=== PATIENT | male | born 1985 | race Caucasian/White ===

== ENCOUNTER 2019-04-04 02:35 | Emergency (ER) | payer OTHER ==
[~2019-04-04] VITALS: Ht 177.8 cm; Wt 186.4 kg
[2019-04-04 02:41] VITALS: TEMP 98.4
[2019-04-04 03:22] VITALS: BP 164/96; PULSE 80
== END 2019-04-04 03:27 | disposition home or self-care (01) ==
LOC: COL.ER 02:35
DX: S61.412A Laceration without foreign body of left hand, initial encounter (principal); F17.210 Nicotine dependence, cigarettes, uncomplicated; Y92.59 Other trade areas as the place of occurrence of the external cause

== ENCOUNTER 2019-04-10 17:11 | Emergency (ER) | payer OTHER | END 2019-04-10 17:24 | disposition home or self-care (01) | LOC: COL.ER 17:11 | DX: S61.412D Laceration without foreign body of left hand, subsequent encounter (principal); X58.XXXD Exposure to other specified factors, subsequent encounter ==

== ENCOUNTER 2021-02-24 07:08 | Inpatient (IN) | payer BC ==
[~2021-02-24] VITALS: Ht 177.8 cm; Wt 200.0 kg
[2021-02-24] VITALS (7 sets, daily range): BP systolic 166–200; BP diastolic 87–98; PULSE 84–111; TEMP 97.7–98.7
[2021-02-24] MEDS ORDERED: PROZAC40 MG PO (07:12)
[2021-02-24 07:38] LABS: BASO % 0.5 % (0.0-2.0); GRAN % 79.1 % (42.2-75.2); HEMOGLOBIN 15.8 g/dl (13.5-18.0); LYMPH # 0.7 (1.2-3.4); MEAN CELL VOLUME 101 fl (80.0-100.0); MEAN CORPUSCULAR HEMOGLOBIN 34 pg (27.0-31.0); MEAN CORPUSCULAR HGB CONC 34 g/dl (33.0-37.0); MEAN PLATELET VOLUME 9.5 fl (7.4-10.4); MONO # 0.5 (0.1-0.6); MONO % 8.5 % (1.7-9.3); PLATELET COUNT 122 K/mm3 (130-400); RED BLOOD COUNT 4.65 M/mm3 (4.20-5.60); REDCELL DISTRIBUTION WIDTH-CV 14.7 % (11.5-14.5)
[2021-02-24 07:51] LABS: ALBUMIN 4.8 gm/dL (3.5-5.0); ALKALINE PHOSPHATASE 78 U/L (50-136); ANION GAP 20 mmol/L (7-16); AST,SGOT 82 U/L (15-37); BILIRUBIN,TOTAL 1.4 mg/dL (0.0-1.0); BLOOD UREA NITROGEN 5 mg/dL (9-20); CALCIUM 9.7 mg/dL (8.4-10.2); CARBON DIOXIDE 22 mmol/L (22-30); CHLORIDE 94 mmol/L (98-107); CREATININE, serum 0.79 (0.66-1.25); GLUCOSE 180 mg/dL (74-106); LIPASE 219 U/L (23-300); POTASSIUM 3.9 mmol/L (3.4-5.0); SODIUM 135 mmol/L (137-145); TOTAL PROTEIN 8.8 gm/dL (6.4-8.2)
[2021-02-24 07:52] LABS: ALCOHOL(ethanol),MEDICAL < 10 mg/dL
[2021-02-24 07:57] LABS: ALANINE AMINOTRANSFERASE 76 U/L (4-49)
[2021-02-24 10:08] LABS: INR 1.1 (0.8-3.0); PROTHROMBIN TIME 12.4 SECONDS (9.7-12.8)
--- NOTE | 2021-02-24 18:58 | NUR ---
This RN received a call from telemetry that the patient was having SVTs with a rate of 150. I notified the charge nurse. Vitals were done, provider was called and a stat EKG was completed by RT.
--- NOTE | 2021-02-24 20:00 | NUR ---
Report received, assumed care for production shift supervisor. Assessment complete. A&Ox3-drowsy. Denies pain/nausea/shortness of breath. Noted ot have elevated blood pressure. Plan of care discussed for this shift to include HS meds/ativan PRN/calling for questions/concerns. Verblizes understanding/denies needs. Call light in reach. Will monitor.
--- NOTE | 2021-02-24 22:30 | NUR ---
Report from PCT that patient was hard to wake up and blood pressure was elevated. Patient sleeping-audible snore. Sternal rub done and patient woke up immediately stating he has always slept hard. Noted to also have elevated blood pressure with systolic in the 180s. Labetalol given per dr marion. Will monitor.
[2021-02-25] VITALS (11 sets, daily range): BP systolic 110–202; BP diastolic 59–108; PULSE 66–102; TEMP 07.9
[2021-02-25 06:19] LABS: BASO % 0.3 % (0.0-2.0); EOS # 0.1 (0.0-0.7); GRAN # 3.7 (1.4-6.5); HEMATOCRIT 42.5 % (42.0-52.0); LYMPH # 1.5 (1.2-3.4); LYMPH % 25.4 % (20.0-51.0); MEAN CELL VOLUME 103 fl (80.0-100.0); MEAN CORPUSCULAR HEMOGLOBIN 34 pg (27.0-31.0); MEAN CORPUSCULAR HGB CONC 33 g/dl (33.0-37.0); MEAN PLATELET VOLUME 10.3 fl (7.4-10.4); MONO # 0.6 (0.1-0.6); MONO % 9.8 % (1.7-9.3); PLATELET COUNT 87 K/mm3 (130-400); RED BLOOD COUNT 4.12 M/mm3 (4.20-5.60); REDCELL DISTRIBUTION WIDTH-CV 15.2 % (11.5-14.5)
[2021-02-25 06:27] LABS: CALCIUM 9.1 mg/dL (8.4-10.2); CREATININE, serum 0.75 (0.66-1.25); POTASSIUM 3.4 mmol/L (3.4-5.0)
--- NOTE | 2021-02-25 08:45 | NUR ---
Patient laying in bed, easily awakened with verbal command. VSS. IV CDI, fluids infusing. Denies pain and discomfort. ETOH protocols in place. No further needs expressed from the patient. Call light within reach. Bed alarm on
--- NOTE | 2021-02-25 10:43 | NUR ---
First visit from the radio mechanic apprentice. No needs right now.
--- NOTE | 2021-02-25 14:42 | NUR ---
Sw met with the pt who stated his preference to return home once medically stable. The pt is is willis wyn[place] and was interested in treatment centers, but due to cost he would like to stay seeing his psychotherapist at [facility]. The pt requested that Sw fax over his information to his therapist. The pt informed Sw that he would be texting his therapist as well. The Sw asked the pt if he was giving me permission to send his information and he stated "yes". The pt lives at home, and his next of kin is Rachell Pagan (ph# [phone]). The pt is independent on all ADLs and does not use any DME. The pt PCP is Jose Burnette and he gets his medications from [facility]. The pt does not have [facility] and is not interested in one at this time. The pt has never used HH services before. No other needs stated at this time. Sw to await further recommendations and follow up as needed. D/c: Home
--- NOTE | 2021-02-25 15:01 | NUR ---
Josh faxed over ER summary to at [facility] in [facility]. .
--- NOTE | 2021-02-25 17:45 | NUR ---
Patient stating that he is feeling a little better, just drowsy. Has stated concerns about detoxing and nursing staff providing advice and SS giving additional resources. VSS. IV CDI. ETOH protocol in place. Visual tremors in hands and stated increased anxiety from the patient. Tolerating food and getting rest. No further needs expressed from the patient. Call light within reach. Bed alarm on
--- NOTE | 2021-02-25 22:55 | NUR ---
ALERT AND OX4. OBVIOUS TREMORS, AND SWEATING. BP ELEVATED. DENIES CHEST PAIN OR SOA. FEELS ANXIOUS OFTEN. ATIVAN GIVEN PER CIWA PROTOCOL. POC DISCUSSED. NEEDS MET. CALL LIGHT WI REACH.
[2021-02-26] VITALS (10 sets, daily range): BP systolic 156–191; BP diastolic 86–108; PULSE 67–83; TEMP 97.7–98.9
--- NOTE | 2021-02-26 00:20 | NUR ---
BP OF SYSTOLIC OVER 200 TX W LABETOL. PT IS SLEEPING AT THIS TIME.
--- NOTE | 2021-02-26 04:50 | NUR ---
RESTED OVERNIGHT WITHOUT INCIDENT. SCORING 7-9 CIWA ATIVAN GIVEN NEEDED. NEEDS MET.
[2021-02-26 06:59] LABS: BASO % 0.2 % (0.0-2.0); EOS # 0.1 (0.0-0.7); EOS % 1.3 % (0-4.0); GRAN # 3.8 (1.4-6.5); GRAN % 61.8 % (42.2-75.2); HEMATOCRIT 43.8 % (42.0-52.0); LYMPH # 1.7 (1.2-3.4); MEAN CELL VOLUME 107 fl (80.0-100.0); MEAN CORPUSCULAR HEMOGLOBIN 34 pg (27.0-31.0); MEAN CORPUSCULAR HGB CONC 32 g/dl (33.0-37.0); MEAN PLATELET VOLUME 10.6 fl (7.4-10.4); MONO # 0.6 (0.1-0.6); MONO % 8.9 % (1.7-9.3); PLATELET COUNT 78 K/mm3 (130-400); RED BLOOD COUNT 4.09 M/mm3 (4.20-5.60); REDCELL DISTRIBUTION WIDTH-CV 15.2 % (11.5-14.5)
[2021-02-26 07:08] LABS: CALCIUM 9.1 mg/dL (8.4-10.2); CREATININE, serum 0.76 (0.66-1.25); POTASSIUM 3.2 mmol/L (3.4-5.0)
--- NOTE | 2021-02-26 07:19 | NUR ---
PATIENT ASLEEP IN BED AT THIS TIME.
--- NOTE | 2021-02-26 08:44 | NUR ---
Scheduled medication given. Shift assessment preformed. PRN Labetalol given for blood pressure of 191/97. Patient does not appear to anxious, mild tremor noted. Patient A&O. Patient scoring a 3. Patient denies any pain, N/V/D, or futher needs at this time.Will continue to monitor. Call light in reach. Fall precautions in place.
--- NOTE | 2021-02-26 12:37 | NUR ---
Patient's BP continues to be high. Dr. Yepez notified. Norvasc ordered. Patient experiencing mild hand tremors. Patient is A&O no signs of agitation. Patient denies any pain, discomfort, or further needs at this time. Will continue to monitor. Call light in reach.
--- NOTE | 2021-02-26 15:56 | NUR ---
Patient has had an ok day. Has been scoring 2's and 3's on CIWA. Still experiencing High BP. Norvasc and Labetalol on board. Patient has a mild tremor. Patient denies any N/V/D and has been able to tolerate all meals. Patient A&O. Denies any pain, discomfort, or further needs at this time. Will continue to monitor. Call light in reach.
--- NOTE | 2021-02-26 21:30 | NUR ---
PATIENT IS CALM IN THE ROOM.DENIES PAIN.SAFEY MEASURES IN PLACE.NO OTHER NEEDS AT THIS TIME.
[2021-02-27] VITALS (10 sets, daily range): BP systolic 149–195; BP diastolic 88–107; PULSE 60–83; TEMP 97.5–98.9
--- NOTE | 2021-02-27 05:31 | NUR ---
BRITTA HAD A RESTFUL NIGHT.BP ELEVATED HAS A PRN LABETALOL DUE AT 7PM.DENIES PAIN.SAFETY MEASURES IN PLACE.ON CIWAS SCORING 2.NO OTHER NEEDS AT THIS TIME.
[2021-02-27 07:20] LABS: BASO % 0.3 % (0.0-2.0); EOS # 0.1 (0.0-0.7); EOS % 1.6 % (0-4.0); GRAN # 4.5 (1.4-6.5); GRAN % 60.5 % (42.2-75.2); HEMATOCRIT 43.4 % (42.0-52.0); HEMOGLOBIN 14.3 g/dl (13.5-18.0); LYMPH # 2.1 (1.2-3.4); LYMPH % 27.7 % (20.0-51.0); MEAN CELL VOLUME 104 fl (80.0-100.0); MEAN CORPUSCULAR HEMOGLOBIN 34 pg (27.0-31.0); MEAN CORPUSCULAR HGB CONC 33 g/dl (33.0-37.0); MEAN PLATELET VOLUME 10.6 fl (7.4-10.4); MONO # 0.7 (0.1-0.6); PLATELET COUNT 88 K/mm3 (130-400); RED BLOOD COUNT 4.19 M/mm3 (4.20-5.60)
[2021-02-27 07:29] LABS: CALCIUM 9.3 mg/dL (8.4-10.2); CREATININE, serum 0.78 (0.66-1.25); POTASSIUM 3.3 mmol/L (3.4-5.0)
--- NOTE | 2021-02-27 08:51 | NUR ---
Patient sitting up in bed eating breakfast upon entering the room. Patient states he is, "hoping to have the going home talk today". He feels they are just keeping him here to manage his HTN, but that he can have this taken care of with his PCP. Patient notified this RN that he rolled over in his sleep and felt like his IV needed to be checked. This RN checked his IV and it flushed well, dressing was changed as it was starting to come off. Patient did state that he "almost put salt on his eggs and decided he better not". This RN praised the patient on this choice and encouraged him to continue thinkning that way.
[2021-02-27] MEDS ORDERED: FOLIC ACID 11 MG/TA1 PO (11:07)
[2021-02-27] MEDS ORDERED: LIBRIUM 25M25 MG/CAP PO (11:07)
[2021-02-27] MEDS ORDERED: THIAMINE 1100 MG/TAB PO (11:08)
[2021-02-27] MEDS ORDERED: DUO-KAPS1 CAP PO (11:08)
[2021-02-27] MEDS ORDERED: NORVASC 10MG10 MG PO (11:09)
--- NOTE | 2021-02-27 12:33 | NUR ---
Initial visit; Patient thanked Lab Nurse for looking in on him and offering God's blessings though he declined spiritual care.
--- NOTE | 2021-02-27 15:50 | NUR ---
Patient received orders to discharge and grew anxious over said orders. Patient felt like he may not be ready to go home yet and has a fear of seizing from detoxing. Patient began crying and tremors worsened. This RN notified the hospitalist of how the patient was feeling. CIWA was completed and he scored a 5, so 0.5mg of lorazepam was administered per CIWA protocol. Patient has been doing well since this happened. Plan is for patient to discharge tomorrow.
--- NOTE | 2021-02-27 20:30 | NUR ---
PATIENTIS RESTING IN BED.DUE MEDS GIVEN.DENIES PAIN.SAFETY MEASURES IN PLACE.NO OTHER NEEDS AT THIS TIME.
[2021-02-28 01:53] VITALS: BP 175/105; PULSE 93; TEMP 97.5
[2021-02-28 04:03] VITALS: BP 185/122; PULSE 70; TEMP 97.9
[2021-02-28 05:32] VITALS: BP 175/107; PULSE 64; TEMP 97.9
--- NOTE | 2021-02-28 06:03 | NUR ---
PATIENT HAD A CALM NIGHT.DENIES PAIN.BP ELEVATED THIS MORN.SAFETY MEASURES IN PLACE.NO OTHER NEED AT THIS TIME.
[2021-02-28 07:36] LABS: BASO % 0.3 % (0.0-2.0); EOS # 0.2 (0.0-0.7); EOS % 2.4 % (0-4.0); GRAN # 4.2 (1.4-6.5); GRAN % 63.5 % (42.2-75.2); HEMOGLOBIN 14.3 g/dl (13.5-18.0); LYMPH # 1.5 (1.2-3.4); LYMPH % 22.2 % (20.0-51.0); MEAN CELL VOLUME 106 fl (80.0-100.0); MEAN CORPUSCULAR HEMOGLOBIN 34 pg (27.0-31.0); MEAN CORPUSCULAR HGB CONC 33 g/dl (33.0-37.0); MEAN PLATELET VOLUME 10.2 fl (7.4-10.4); MONO # 0.7 (0.1-0.6); MONO % 10.7 % (1.7-9.3); PLATELET COUNT 83 K/mm3 (130-400); RED BLOOD COUNT 4.16 M/mm3 (4.20-5.60)
[2021-02-28 07:41] LABS: ALBUMIN 3.6 gm/dL (3.5-5.0); BILIRUBIN,TOTAL 1.1 mg/dL (0.0-1.0); CALCIUM 9.2 mg/dL (8.4-10.2); CREATININE, serum 0.75 (0.66-1.25); POTASSIUM 3.3 mmol/L (3.4-5.0); TOTAL PROTEIN 7.2 gm/dL (6.4-8.2)
[2021-02-28 07:51] VITALS: BP 176/103; PULSE 65; TEMP 97.9
--- NOTE | 2021-02-28 09:50 | NUR ---
Patient siting in bed upon entering the room. Patient has no complaints and is ready to discharge.
== END 2021-02-28 12:20 | disposition home or self-care (01) | DRG 897 ==
LOC: COL.ER 07:08 → MEDICAL 08:15
PROVIDERS: Emergency Medicine; Physician Assistant; ADMIT Student in an Organized Health Care Education/Training Program
PROC: HZ2ZZZZ Detoxification Services for Substance Abuse Treatment (ICD-10-PCS; principal; 2021-02-24)
DX: F10.239 Alcohol dependence with withdrawal, unspecified (principal); Y90.0 Blood alcohol level of less than 20 mg/100 ml; F41.9 Anxiety disorder, unspecified; E66.01 Morbid (severe) obesity due to excess calories; D69.6 Thrombocytopenia, unspecified; E87.6 Hypokalemia
CPT/HCPCS: 99223-AI; 99232-AI; 99239; C9113; J0360; J1650; J2060; J2405; J3411; J7030